=== PATIENT | female | born 1990 | race African-American/Black ===

== ENCOUNTER 2016-09-13 10:25 | Emergency (ER) | payer MEDICAID, OTHER ==
[~2016-09-13] VITALS: Ht 157.5 cm; Wt 50.0 kg
[2016-09-13] MEDS ORDERED: IBUPROFEN 600MG TABLET PO ONE (12:15)
[2016-09-13] MEDS ORDERED: ACETAMINOPHEN WITH CODEINE 300/30MG TABLET PO ONE (13:15)
[2016-09-13 15:13] VITALS: BP 129/74
== END 2016-09-13 15:19 | disposition home or self-care (01) ==
LOC: ER 12:15
DX: S59.902A Unspecified injury of left elbow, initial encounter (principal); F12.10 Cannabis abuse, uncomplicated; W19.XXXA Unspecified fall, initial encounter; Y93.89 Activity, other specified; Y92.89 Other specified places as the place of occurrence of the external cause; Y99.8 Other external cause status
CPT/HCPCS: 29125; 73080; 99284; A4565